=== PATIENT | female | born 2000 | race Caucasian/White ===

== ENCOUNTER 2021-09-21 07:44 | Inpatient (IN) | payer OTHER ==
[~2021-09-21] VITALS: Ht 157.5 cm; Wt 135.6 kg
[~2021-09-21 07:44] MED LIST: ABILIFY5 MG PO; FEOSOL325 MG PO; PRENATAL FORMU1 EACH PO; VYVANSE; WELLBUTRIN75 MG PO; ZERTEC
[2021-09-21 09:20] LABS: HCT 34.5 % (37.0-47.0); HGB 10.8 g/dl (12.5-16.0); MCH 25.9 pg (25.0-31.0); MCHC 31.3 g/dL (32.0-36.0); MCV 82.7 fL (78.0-100.0); MPV 11.8 fL (6.0-9.5); RBC 4.17 M/uL (4.20-5.40); RDW 13.9 % (11.5-14.0); WBC 8.1 K/uL (4.0-10.5)
[2021-09-21 10:03] LABS: BILIRUBIN NEGATIVE (NEGATIVE); BLOOD NEGATIVE Ery/uL (NEGATIVE); COLOR YELLOW (YELLOW); GLUCOSE (U) NORMAL (NORMAL); LEUKOCYTES TRACE Leu/uL (NEGATIVE); NITRITE NEGATIVE (NEGATIVE); PROTEIN TRACE (LOW) mg/dL (NEGATIVE); SPECIFIC GRAVITY 1.025 (1.001-1.030); UROBILINOGEN 0.2 mg/dL (0.2-1.0)
[2021-09-21 10:08] LABS: CLARITY HAZY (CLEAR)
[2021-09-21 10:09] LABS: BACTERIA 2+
[2021-09-22] MEDS ORDERED: IBUPROFEN800 MG PO (21:46)
[2021-09-22] MEDS ORDERED: COLACE100 MG PO (21:46)
[2021-09-22 21:58] LABS: HCT 34.9 % (37.0-47.0); HGB 10.7 g/dl (12.5-16.0); MCH 25.7 pg (25.0-31.0); MCHC 30.7 g/dL (32.0-36.0); MCV 83.9 fL (78.0-100.0); MPV 11.2 fL (6.0-9.5); RBC 4.16 M/uL (4.20-5.40); RDW 14.1 % (11.5-14.0)
[2021-09-22 21:59] LABS: WBC 15.3 K/uL (4.0-10.5)
== END 2021-09-23 18:46 | disposition home or self-care (01) | DRG 807 ==
LOC: FOB 07:44
PROVIDERS: ADMIT Specialist
PROC: 10E0XZZ Delivery of Products of Conception, External Approach (ICD-10-PCS; principal; 2021-09-21)
PROC: 0HQ9XZZ Repair Perineum Skin, External Approach (ICD-10-PCS; 2021-09-21)
PROC: 3E0P7VZ Introduction of Hormone into Female Reproductive, Via Natural or Artificial Opening (ICD-10-PCS; 2021-09-21)
DX: O99.214 Obesity complicating childbirth (principal); Z37.0 Single live birth; Z3A.39 39 weeks gestation of pregnancy; O70.0 First degree perineal laceration during delivery; E66.01 Morbid (severe) obesity due to excess calories; Z20.822 Contact with and (suspected) exposure to COVID-19; O36.63X0 Maternal care for excessive fetal growth, third trimester, not applicable or unspecified; O99.344 Other mental disorders complicating childbirth; F32.A Depression, unspecified; Z79.82 Long term (current) use of aspirin; Z79.899 Other long term (current) drug therapy
CPT/HCPCS: 36415; 81001; J0595; J2001; J2405; J7120; U0002